=== PATIENT | male | born 1990 | race American Indian/Alaskan Native ===

== ENCOUNTER 2018-07-02 18:31 | Emergency (ER) | payer SELFPAY ==
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
[2018-07-02 21:10] VITALS: RESP 18
[2018-07-02 21:52] VITALS: BP 116/74; PULSE 94; TEMP 98.8; O2SAT 99
--- NOTE | 2018-07-03 09:16 | RAD ---
Date of service: 07/02/2018 HISTORY: chest pain and cough COMPARISON: No prior. TECHNIQUE: Chest PA and lateral FINDINGS: LUNGS: No active pulmonary disease. PLEURA: No significant pleural effusion identified. No pneumothorax apparent. CARDIOVASCULAR: No aortic atherosclerotic calcification present. Normal cardiac size. No pulmonary vascular congestion. OSSEOUS STRUCTURES: No significant abnormalities. VISUALIZED UPPER ABDOMEN: Normal. OTHER FINDINGS: None. IMPRESSION: No active disease.
--- NOTE | 2018-07-03 10:24 | CARD ---
APPROVED REPORT Date of service: 07/02/2018 EKG Measurement Heart [id number] <Conclusion> Normal sinus rhythm Left posterior fascicular block Abnormal ECG
== END 2018-07-02 21:30 | disposition home or self-care (01) ==
LOC: H.ER 18:31
DX: J11.1 Influenza due to unidentified influenza virus with other respiratory manifestations (principal)
CPT/HCPCS: 71046; 93005; 96372; 99283; J1885